=== PATIENT | male | born 1950 | race Caucasian/White ===

== ENCOUNTER 2021-06-13 18:38 | Inpatient (IN) | payer MEDICARE, OTHER ==
[~2021-06-13] VITALS: Ht 180.3 cm; Wt 84.8 kg
[2021-06-13 20:01] LABS: HEMOGLOBIN 16.9 gm/dl (14.0-17.5); RED BLOOD COUNT 4.8 M/UL (4.20-5.50); WHITE BLOOD COUNT 8.5 K/UL (4.5-11.0)
[2021-06-14 06:34] LABS: HEMOGLOBIN 14.6 gm/dl (14.0-17.5); RED BLOOD COUNT 4.29 M/UL (4.20-5.50)
== END 2021-06-14 09:10 | disposition left against medical advice (07) | DRG 177 ==
LOC: ER1 18:38 → CDU 21:20 → M/S 21:20
PROVIDERS: Internal Medicine; Preventive Medicine Occupational Medicine; ADMIT Internal Medicine
PROC: 3E03329 Introduction of Other Anti-infective into Peripheral Vein, Percutaneous Approach (ICD-10-PCS; principal; 2021-06-13)
PROC: 3E0333Z Introduction of Anti-inflammatory into Peripheral Vein, Percutaneous Approach (ICD-10-PCS; 2021-06-13)
PROC: 8E0ZXY6 Isolation (ICD-10-PCS; 2021-06-13)
PROC: XW033E5 Introduction of Remdesivir Anti-infective into Peripheral Vein, Percutaneous Approach, New Technology Group 5 (ICD-10-PCS; 2021-06-14)
DX: U07.1 COVID-19 (principal); J12.82 Pneumonia due to coronavirus disease 2019; E86.0 Dehydration; N40.0 Benign prostatic hyperplasia without lower urinary tract symptoms; Z90.49 Acquired absence of other specified parts of digestive tract; Z79.82 Long term (current) use of aspirin
CPT/HCPCS: 0241U; 36600; 71045; 80053; 82550; 82553; 82803; 83605; 83690; 83874; 83880; 84484; 85025; 85652; 86140; 94664; 96374; 96375; 99285; J0248; J0696; J1100; J7030; Q9967

== ENCOUNTER 2021-06-22 03:08 | Observation (INO) | payer MEDICARE, OTHER ==
[~2021-06-22] VITALS: Ht 152.4 cm; Wt 89.8 kg
[2021-06-22 04:29] LABS: HEMOGLOBIN 13.8 gm/dl (14.0-17.5); RED BLOOD COUNT 4.24 M/UL (4.20-5.50); WHITE BLOOD COUNT 8.8 K/UL (4.5-11.0)
[2021-06-22] MEDS ORDERED: HYDROCODON-ACE1 EAC2 PO (11:53)
[2021-06-22] MEDS ORDERED: ZOFRAN ODT 4 MG4 MG PO (11:54)
[2021-06-22] MEDS ORDERED: ALBUTEROL2.5 MG/3 M NEB (11:54)
[2021-06-22] MEDS ORDERED: COMBIVENT RESPIM4 GM INH (11:55)
[2021-06-22] MEDS ORDERED: CLARITIN10 MG PO (11:55)
[2021-06-22] MEDS ORDERED: FLOMAX 0.4 MG0.4 MG PO (11:56)
[2021-06-22] MEDS ORDERED: OMEPRAZOLE20 MG PO (11:56)
[2021-06-22] MEDS ORDERED: SYNTHROID50 MCG PO (11:56)
[2021-06-22] MEDS ORDERED: ZOCOR20 MG PO (11:57)
[2021-06-22] MEDS ORDERED: PROSCAR 5 MG TAB5 MG PO (11:57)
[2021-06-23 06:16] LABS: HEMOGLOBIN 11.9 gm/dl (14.0-17.5)
[2021-06-23 06:18] LABS: RED BLOOD COUNT 3.73 M/UL (4.20-5.50); WHITE BLOOD COUNT 5.9 K/UL (4.5-11.0)
[2021-06-23 06:44] LABS: BUN/CREATININE RATIO 16 (0-10)
[2021-06-23] MEDS ORDERED: BENZONATATE100 MG PO (11:28)
[2021-06-23] MEDS ORDERED: AUGMENTIN 500-500 MG PO (11:28)
== END 2021-06-23 14:25 | disposition home or self-care (01) ==
LOC: ER1 03:08 → CDU 10:29 → M/S 11:50
PROVIDERS: Physician Assistant Medical; Student in an Organized Health Care Education/Training Program; ADMIT Internal Medicine Infectious Disease
DX: U07.1 COVID-19 (principal); J18.9 Pneumonia, unspecified organism; J44.0 Chronic obstructive pulmonary disease with (acute) lower respiratory infection; N17.9 Acute kidney failure, unspecified; N40.0 Benign prostatic hyperplasia without lower urinary tract symptoms; Z79.899 Other long term (current) drug therapy; Z87.891 Personal history of nicotine dependence; Z88.5 Allergy status to narcotic agent
CPT/HCPCS: 36415; 71045; 80048; 81001; 82550; 82553; 83735; 84484; 85025; 85027; 93005; 94640; 94664; 94760; 96372; 96374; 96375; 99285; G0378; J0456; J0696; J1100; J1650; J7030; Q9967; U0002